=== PATIENT | male | born 1970 | race Caucasian/White ===

== ENCOUNTER → 2021-12-30 | Outpatient (CLI) | payer BC, SELFPAY ==
[2021-12-30 15:00] LABS: Absolute Lymphocyte Count 2.01 X10^3/uL (0.83-4.51); Absolute Neutrophil Count 4.2 X10^3/uL (2.0-7.7); Basophil# 0.04 X10^3/uL; Basophil% 0.6 % (0-1); Eosinophils% 2.8 % (0-5); Hematocrit 48.2 % (40-54); Lymphocyte # 2.01 X10^3/ul (0.83-4.51); Lymphocyte % 28.2 % (19-41); Mean Corp Hgb Conc 33.2 g/dL (32-36); Mean Corpuscular Hgb 31.3 pg (27.0-32.0); Mean Corpuscular Volume 94.3 fL (80-94); Monocyte# 0.59 X10^3/uL; Monocyte% 8.3 % (0-10); NRBC Flagged by Analyzer 0 % (0-5); Neutrophil # 4.23 X10^3/uL (2.7-7.7); Neutrophil % 59.4 % (47-70); Platelet Count 265 K/mm3 (150-450); RBC Distribution Width CV 12.8 % (11.6-14.6); RBC Distribution Width SD 43.8 fl (35.1-43.9); Red Blood Count 5.11 M/mm3 (4.6-6.2); White Blood Count 7.1 K/mm3 (4.4-11.0)
[2021-12-30 15:20] LABS: Hemoglobin A1c 7.9 % (3.8-5.6)
[2021-12-30 15:30] LABS: Microalbumin,Random Urine 14.1 mg/L (NO RANGE EST.); Microalbumin:Creatinine Ratio 6.7 mg/g CRE (<30 mg/g CRE)
[2021-12-30 15:39] LABS: AST(SGOT) 29 U/L (15-37); Alanine Aminotransfer ALT/SGPT 67 U/L (16-61); Albumin, Serum 4.2 g/dL (3.2-5.0); Alkaline Phosphatase 51 U/L (45-117); Anion Gap 6 (5-15); BUN 17 mg/dL (7-18); BUN/Creat Ratio 18.4 RATIO (10-20); Calcium,Total 9.5 mg/dL (8.5-10.1); Chloride 104 mmol/L (98-107); Cholesterol 183 mg/dL (200); Creatinine, Serum 0.92 mg/dL (0.70-1.30); EST Glomerular Filtration Rate 92 mL/min (>60); Est Glom Filt Rate - Afr Amer 111 mL/min (>60); Glucose 128 mg/dL (74-106); High Density Lipoprotein 45 mg/dL; Potassium 4.1 mmol/L (3.5-5.1); Protein, Total 8.2 g/dL (6.4-8.2); Sodium Level 139 mmol/L (136-145); T4 Free Direct 1.09 ng/dL (0.76-1.46); Thyroid Stim Hormone (TSH) 1.32 uIU/mL (0.358-3.74); Triglycerides 143 mg/dL; Very Low Density Lipoprotein 29 mg/dL (5-40)
[2021-12-30 15:53] LABS: Hepatitis B Surface Antibody Non-Reactive; Hepatitis B Surface Antigen Non-Reactive (Nonreactive); Hepatitis C Antibody Non-Reactive (Nonreactive)
== END | disposition home or self-care (01) ==
LOC: MFPLAB 12:06
PROVIDERS: PCP Family Medicine; Referring Provider Family Medicine; Visit Provider Family Medicine
DX: E11.9 Type 2 diabetes mellitus without complications (principal); E04.1 Nontoxic single thyroid nodule; R79.89 Other specified abnormal findings of blood chemistry
CPT/HCPCS: 36415; 80053; 80061; 82043; 82570; 83036; 84439; 84443; 85025; 86706; 86803; 87340

== ENCOUNTER → 2022-01-09 | Outpatient (CLI) | payer BC, SELFPAY ==
--- NOTE | 2022-01-09 09:24 | US_ITS ---
INDICATION: THYROID NODULE EXAMINATION: Ultrasound US Thyroid (eg thyroid, parathyroid, parotid) TECHNIQUE: Louis scale and color doppler imaging was performed of the thyroid gland. COMPARISON: None. FINDINGS: RIGHT THYROID LOBE: 5.4 x 1.8 x 1.5 cm. Homogeneous echotexture with normal vascularity. Posterior inferior thyroid or parathyroid hypoechoic nodule 1.0 x 0.75 x 0.9 cm solid nodule, wider than tall, smoothly marginated without calcifications, TI-RAD 4. LEFT THYROID LOBE: 4.5 x 1.9 x 1.2 cm. Homogeneous echotexture with normal vascularity. [ Posterior upper pole hypoechoic solid 0.6 x 0.3 x 0.5 cm nodule wider than tall, smoothly marginated, with questionable calcification, TI-RAD 4 vs 5. ISTHMUS: 0.2 cm. No thyroid nodules are present. US/Thyroid IMPRESSION: Right thyroid 1 cm nodule versus parathyroid nodule, TI-RAD 4 if of thyroid origin. Exclude serum hypercalcemic state. Nuclear medicine parathyroid scan could further evaluate if clinically indicated. Otherwise recommended one-year follow-up ultrasound per 2017 ACR white paper. Left thyroid 6 mm nodule, conservatively considered TI-RAD 5. Recommend one-year follow-up ultrasound per 2017 ACR white paper. Electronically Signed: Gregory Wright MD at 8:41 EDT ,
== END | disposition home or self-care (01) ==
LOC: US 09:22
PROVIDERS: PCP Family Medicine; Referring Provider Family Medicine; Visit Provider Family Medicine
DX: E04.1 Nontoxic single thyroid nodule (principal)
CPT/HCPCS: 76536

== ENCOUNTER 2022-02-04 12:42 | Emergency (ER) | payer BC, SELFPAY ==
[2022-02-04 12:43] VITALS: BP 138/87; PULSE 76; RESP 17; TEMP 36.6; O2SAT 96; BMI 33.8
--- NOTE | 2022-02-04 13:10 | CT_ITS ---
STUDY: CT BRAIN WITHOUT CONTRAST REASON FOR EXAM: Male, 51 years old. Vision change RADIATION DOSAGE (If Supplied By Facility): CTDIvol = ( 44.99 ) mGy, DLP = ( 829.85 ) mGycm TECHNIQUE: Transaxial CT imaging of the brain was performed without administration of intravenous contrast material. Individualized dose optimization techniques were used for this CT. COMPARISON: No relevant priors. FINDINGS: Normal soft tissue structures. Normal calvarium. Normal size ventricles and extra-axial spaces for the patient''s age. Normal white matter tracts of the cerebral hemispheres. Normal basal ganglia and thalami. Normal brainstem. Normal cerebellum. There is no intracranial hemorrhage. There are no findings of an acute ischemic infarction. Normal visualized paranasal sinuses. CT/Brain/Head without Contrast IMPRESSION: Normal unenhanced CT scan of the brain. Electronically Signed: Conner Lcokett MD at 13:41 EDT ,
--- NOTE | 2022-02-04 13:12 | EX.ED.DYSGE1 ---
HPI <BRANDON Ding - Last Filed: 02/04/22 15:05> History of Present Illness Chief Complaint: Vision Prob Narrative Narrative: 51-year-old male with history of hypertension, diabetes, hyperlipidemia, depression presents the emergency department with vision change that occurred for 10 minutes at around noon today. Patient states he was on the computer answering emails when it looked like he had spots throughout his entire vision. He states he saw it in both eyes. He describes it as looking into the sun for too long and seeing no spots. After this episode, patient did have some pain to the right head, behind the right eye. He denies any nausea or vomiting. Patient arrives here in no distress and does not have any symptoms at this time. [facility] <BRANDON Ding - Last Filed: 02/04/22 15:05> [facility] Medical History (Updated 02/04/22 @ 15:02 by BRANDON Ding) Depression Diabetes HTN (hypertension) Allergy/AdvReac Type Severity Reaction Status Date / Time No Known Allergies Allergy Verified 02/04/22 12:43 Social History Smoking Status: Former smoker ROS <BRANDON Ding - Last Filed: 02/04/22 15:05> ROS ED ROS Narrative Constitutional: Negative for fever, chills, weight loss, weakness Eyes: Negative for vision loss, double vision. Positive for vision change, spots on the vision ENT: Negative for any sore throat, ear pain, congestion Cardiovascular: Negative for any chest pain, tightness, palpitations Respiratory: Negative for any cough, sputum production, hemoptysis, dyspnea, dyspnea on exertion, orthopnea Gastrointestinal: Negative for any abdominal pain, nausea, vomiting, diarrhea, constipation, blood in stool, blood in vomit : Negative for any urinary frequency, dysuria, retention, blood in urine Muscle skeletal: Negative for any muscle joint pain, stiffness, myalgias, arthralgias, neck pain, back pain Neurological: Negative for any headache, syncope, numbness or tingling, dizziness Skin: Negative for any rashes, lumps, itching, abrasions, lacerations Psychiatric: Negative for any depression, anxiety, stress, suicidal ideation, homicidal ideation Hematologic: Negative for any easy bruising, excessive bruising, easy bleeding Allergies: Negative for any eczema, hives, rash EXAM <BRANDON Ding - Last Filed: 02/04/22 15:05> Physical Exam Narrative Exam Narrative: Vital signs reviewed. Patient alert and orient x4. Patient speaking clearly, patient is asymptomatic at this time. HEET: Head normocephalic atraumatic, TMs clear bilaterally. Posterior pharynx is clear, moist mucous membranes. Nares clear bilaterally. Pupils are equal round reactive to light. Neck: Supple with no lymphadenopathy or tenderness. No signs of meningismus, negative jolt sign. Cardiac: Regular rate and rhythm no murmurs gallops or rubs, equal peripheral pulses bilaterally. Respiratory: Lungs clear to auscultation bilaterally. No chest tenderness. Abdomen: Soft, nontender, nondistended. No abdominal bruit or pulsatile masses. No hepatosplenomegaly Extremities: No peripheral edema, no signs of gross trauma or deformity. Active full range of motion of all extremities. Neuro: Cranial nerves II through XII intact, no focal neurological deficits. NIH score of 0 Skin: Clean dry and intact with no rash, purpura, petechiae, vesicles or pustules. Backs/flank: No CVA tenderness, no midline spinal tenderness, no deformity. Psych: Normal mood and affect. No SI, HI or acute psychosis. Const Vital Signs: 02/04/22 12:43 02/04/22 15:07 Temperature 97.9 F Temperature Source Temporal Pulse Rate 76 75 Respiratory Rate 17 16 Blood Pressure 138/87 H 116/71 Blood Pressure Mean 104 86 Pulse Ox 96 97 Oxygen Delivery Method Room Air Room Air Positive well nourished and well developed General Appearance ED: well developed <Dr. Kel Cortes MD - Last Filed: 02/04/22 15:20> Physical Exam Const Vital Signs: 02/04/22 12:43 02/04/22 15:07 Temperature 97.9 F Temperature Source Temporal Pulse Rate 76 75 Respiratory Rate 17 16 Blood Pressure 138/87 H 116/71 Blood Pressure Mean 104 86 Pulse Ox 96 97 Oxygen Delivery Method Room Air Room Air MDM <BRANDON Ding - Last Filed: 02/04/22 15:05> MDM Lab Data Labs: Laboratory Results - last 24 hr 02/04/22 02/04/22 13:20 13:20 WBC 7.5 RBC 5.21 Hgb 16.5 Hct 48.1 MCV 92.3 MCH 31.7 MCHC 34.3 RDW Std Deviation 42.4 RDW Coeff of Caitie 12.4 Plt Count 248 MPV 9.2 Immature Gran % (Auto) 0.400 Neut % (Auto) 58.1 Lymph % (Auto) 29.8 [place] % (Auto) 8.9 Eos % (Auto) 2.0 Baso % (Auto) 0.8 Absolute Neuts (auto) 4.4 Absolute Lymphs (auto) 2.24 Nucleated RBC % 0 ESR 16 Sodium 138 Potassium 3.7 Chloride 102 Carbon Dioxide 30.0 Anion Gap 6 BUN 16 Creatinine 1.00 Estim Creat Clear Calc 87.39 Est GFR (MDRD) Af Amer 101 Est GFR (MDRD) Non-Af 84 BUN/Creatinine Ratio 16.0 Glucose 123 H Calcium 9.8 C-React Prot Ext Range 3.52 H Radiography Diagnostic Testing: Clinical Impression(s) from Imaging Studies Brain CT 02/04/22 13:10 IMPRESSION: Normal unenhanced CT scan of the brain. Electronically Signed: Conner Lockett MD at 13:41 EDT , Treatment and Re-Evaluation Narrative: Patient appears well, patient appears nontoxic, vital signs are stable. Patient presents the emergency department with visual changes, seeing of spots in both of his eyes. Patient's visual acuity was unremarkable, patient did receive a small TIA/CVA work-up. Patient did receive some basic laboratory values, patient CBC, chemistries were grossly unremarkable. Patient did receive a CT scan of the brain, this showed a normal unenhanced CT of the brain. Patient has been asymptomatic since 12:10 PM today. Patient's NIH stroke scale is 0. Patient is here just to make sure. On reassessment, the patient is still asymptomatic, NIH score 0, no vision changes. He will follow-up closely with his physician to continue to have this worked up. He did have a headache after this experience, a migraine headache with aura is also in the differential. Patient instructed to return for any visual changes, weakness to his upper or lower extremities. Patient stable discharge <Dr. Kel Cortes MD - Last Filed: 02/04/22 15:20> MDM MDM Narrative Medical decision making narrative: I have personally performed a face to face assessment of the patient and have reviewed the ROGE Note. I performed a substantive portion of the visit including all aspects of the following. My briggs findings include: History is markable for by ocular scintillating scotoma with unilateral headache. Patient has remote history of migraine headaches. Is not had a migraine headache in 4 years. He denied double vision, loss of vision or partial loss of vision. There is no trouble with speech or fluency. He denied problems with balance or coordination. He denied paresthesia, anesthesia or motor because of his upper or lower extremity. There is no recent history of trauma. He denies constitutional symptoms and specifically fever or chills. Exam is unremarkable. HEENT exam is unremarkable. There is no temporal artery tenderness. Extract muscle intact. Sclera is anicteric. Neck is supple. Nonfocal neurologic exam Medical Decision Making differential diagnosis is vasculitis, migraine headache, doubt stroke and reason he was sent in. CLOTH PIECER tumor Other additions or changes: Work-up is unremarkable. CT was unremarkable. Patient is discharged home with appropriate home-going instructions Lab Data Attestation: I reviewed the patient's lab results. Labs: Laboratory Results - last 24 hr 02/04/22 02/04/22 13:20 13:20 WBC 7.5 RBC 5.21 Hgb 16.5 Hct 48.1 MCV 92.3 MCH 31.7 MCHC 34.3 RDW Std Deviation 42.4 RDW Coeff of Caitie 12.4 Plt Count 248 MPV 9.2 Immature Gran % (Auto) 0.400 Neut % (Auto) 58.1 Lymph % (Auto) 29.8 [place] % (Auto) 8.9 Eos % (Auto) 2.0 Baso % (Auto) 0.8 Absolute Neuts (auto) 4.4 Absolute Lymphs (auto) 2.24 Nucleated RBC % 0 ESR 16 Sodium 138 Potassium 3.7 Chloride 102 Carbon Dioxide 30.0 Anion Gap 6 BUN 16 Creatinine 1.00 Estim Creat Clear Calc 87.39 Est GFR (MDRD) Af Amer 101 Est GFR (MDRD) Non-Af 84 BUN/Creatinine Ratio 16.0 Glucose 123 H Calcium 9.8 C-React Prot Ext Range 3.52 H Radiography Diagnostic Testing: Clinical Impression(s) from Imaging Studies Brain CT 02/04/22 13:10 IMPRESSION: Normal unenhanced CT scan of the brain. Electronically Signed: Conner Lockett MD at 13:41 EDT , Discharge Plan Triage Chief Complaint: Vision Prob ED Midlevel Provider: Jerry Bynum ED Provider: Kel Cortes Dx/Rx/DC Orders Clinical Impression: Alteration in vision, Headache Instructions: Understanding Vision Problems, ED Rebound Headache Primary Care Provider: Murray Rausch Referrals: Murray Rausch MD [Primary Care Provider] - Activity Restrictions/Additional Instructions: Please follow-up with your PCP. Disposition Disposition: Home, Self Care Discharge Date/Time: 02/04/22 15:10
[2022-02-04 13:25] LABS: Absolute Lymphocyte Count 2.24 X10^3/uL (0.83-4.51); Absolute Neutrophil Count 4.4 X10^3/uL (2.0-7.7); Basophil# 0.06 X10^3/uL; Basophil% 0.8 % (0-1); Eosinophil# 0.15 X10^3/uL; Hematocrit 48.1 % (40-54); Hemoglobin 16.5 g/dL (13.0-16.5); Lymphocyte # 2.24 X10^3/ul (0.83-4.51); Lymphocyte % 29.8 % (19-41); Mean Corp Hgb Conc 34.3 g/dL (32-36); Mean Corpuscular Hgb 31.7 pg (27.0-32.0); Mean Corpuscular Volume 92.3 fL (80-94); Mean Platelet Vol. 9.2 fl (6.2-12.0); Monocyte# 0.67 X10^3/uL; Monocyte% 8.9 % (0-10); NRBC Flagged by Analyzer 0 % (0-5); Neutrophil # 4.36 X10^3/uL (2.7-7.7); Neutrophil % 58.1 % (47-70); Platelet Count 248 K/mm3 (150-450); RBC Distribution Width CV 12.4 % (11.6-14.6); RBC Distribution Width SD 42.4 fl (35.1-43.9); Red Blood Count 5.21 M/mm3 (4.6-6.2); White Blood Count 7.5 K/mm3 (4.4-11.0)
[2022-02-04 13:38] LABS: Erythrocyte Sedimentation Rate 16 mm/hr (0-20)
[2022-02-04 13:40] LABS: Anion Gap 6 (5-15); BUN 16 mg/dL (7-18); CRP 3.52 mg/L (0.0-3.0); Calcium,Total 9.8 mg/dL (8.5-10.1); Chloride 102 mmol/L (98-107); EST Glomerular Filtration Rate 84 mL/min (>60); Est Glom Filt Rate - Afr Amer 101 mL/min (>60); Estimated Creatinine Clearance 87.39 ml/min; Glucose 123 mg/dL (74-106); Potassium 3.7 mmol/L (3.5-5.1); Sodium Level 138 mmol/L (136-145)
[2022-02-04 15:07] VITALS: BP 116/71; PULSE 75; RESP 16; O2SAT 97
== END 2022-02-04 15:10 | disposition home or self-care (01) ==
PROVIDERS: Nurse Practitioner; Emergency Provider Emergency Medicine; PCP Family Medicine; Visit Provider Emergency Medicine
DX: R51.9 Headache, unspecified (principal); E11.9 Type 2 diabetes mellitus without complications; E78.5 Hyperlipidemia, unspecified; I10 Essential (primary) hypertension; Z87.891 Personal history of nicotine dependence; F32.A Depression, unspecified; H53.9 Unspecified visual disturbance
CPT/HCPCS: 70450; 80048; 85025; 85652; 86140; 99281

== ENCOUNTER → 2022-06-17 | Outpatient (CLI) | payer BC, SELFPAY ==
[2022-06-17 17:40] LABS: Absolute Lymphocyte Count 2.23 X10^3/uL (0.83-4.51); Absolute Neutrophil Count 4.2 X10^3/uL (2.0-7.7); Basophil# 0.06 X10^3/uL; Basophil% 0.8 % (0-1); Eosinophil# 0.23 X10^3/uL; Eosinophils% 3.1 % (0-5); Hematocrit 48.8 % (40-54); Hemoglobin 16.1 g/dL (13.0-16.5); Lymphocyte # 2.23 X10^3/ul (0.83-4.51); Lymphocyte % 30.3 % (19-41); Mean Corpuscular Hgb 31.1 pg (27.0-32.0); Mean Corpuscular Volume 94.2 fL (80-94); Mean Platelet Vol. 10.1 fl (6.2-12.0); Monocyte# 0.61 X10^3/uL; Monocyte% 8.3 % (0-10); NRBC Flagged by Analyzer 0 % (0-5); Platelet Count 255 K/mm3 (150-450); RBC Distribution Width SD 44.8 fl (35.1-43.9); Red Blood Count 5.18 M/mm3 (4.6-6.2); White Blood Count 7.4 K/mm3 (4.4-11.0)
[2022-06-17 18:18] LABS: ALB/GLOB Ratio 1.2 RATIO (0.9-2.4); AST(SGOT) 33 U/L (15-37); Alanine Aminotransfer ALT/SGPT 81 U/L (16-61); Albumin, Serum 4.3 g/dL (3.2-5.0); Alkaline Phosphatase 58 U/L (45-117); Anion Gap 7 (5-15); BUN 20 mg/dL (7-18); BUN/Creat Ratio 19.6 RATIO (10-20); Calcium,Total 9.7 mg/dL (8.5-10.1); Chloride 100 mmol/L (98-107); Cholesterol 208 mg/dL (200); Creatinine, Serum 1.02 mg/dL (0.70-1.30); EST Glomerular Filtration Rate 82 mL/min (>60); Est Glom Filt Rate - Afr Amer 99 mL/min (>60); Globulin 3.7 g/dL (2.2-4.2); Glucose 207 mg/dL (74-106); High Density Lipoprotein 46 mg/dL; Potassium 4.3 mmol/L (3.5-5.1); Sodium Level 138 mmol/L (136-145); Triglycerides 402 mg/dL
[2022-06-17 18:20] LABS: Hemoglobin A1c 7.5 % (3.8-5.6)
[2022-06-17 19:04] LABS: Microalbumin:Creatinine Ratio 10.5 mg/g CRE (<30 mg/g CRE)
== END | disposition home or self-care (01) ==
LOC: MFPLAB 14:59
PROVIDERS: PCP Family Medicine; Referring Provider Family Medicine; Visit Provider Family Medicine
DX: E11.9 Type 2 diabetes mellitus without complications (principal)
CPT/HCPCS: 36415; 80053; 80061; 82043; 82570; 83036; 85025

== ENCOUNTER → 2022-10-29 | Outpatient (CLI) | payer BC, SELFPAY ==
[2022-10-29 10:17] LABS: Absolute Lymphocyte Count 2.08 X10^3/uL (0.83-4.51); Basophil# 0.07 X10^3/uL; Eosinophil# 0.24 X10^3/uL; Eosinophils% 3.4 % (0-5); Hematocrit 49.6 % (40-54); Hemoglobin 16.2 g/dL (13.0-16.5); Lymphocyte # 2.08 X10^3/ul (0.83-4.51); Lymphocyte % 29.8 % (19-41); Mean Corp Hgb Conc 32.7 g/dL (32-36); Mean Corpuscular Hgb 30.6 pg (27.0-32.0); Mean Corpuscular Volume 93.8 fL (80-94); Monocyte# 0.58 X10^3/uL; Monocyte% 8.3 % (0-10); NRBC Flagged by Analyzer 0 % (0-5); Neutrophil # 3.96 X10^3/uL (2.7-7.7); Neutrophil % 56.9 % (47-70); Platelet Count 264 K/mm3 (150-450); RBC Distribution Width CV 12.5 % (11.6-14.6); RBC Distribution Width SD 43.1 fl (35.1-43.9); Red Blood Count 5.29 M/mm3 (4.6-6.2)
[2022-10-29 10:35] LABS: AST(SGOT) 29 U/L (15-37); Alanine Aminotransfer ALT/SGPT 70 U/L (16-61); Albumin, Serum 4.1 g/dL (3.2-5.0); Alkaline Phosphatase 64 U/L (45-117); Anion Gap 5 (5-15); BUN 19 mg/dL (7-18); BUN/Creat Ratio 19.2 RATIO (10-20); Calcium,Total 9.5 mg/dL (8.5-10.1); Chloride 106 mmol/L (98-107); Cholesterol 157 mg/dL (200); Creatinine, Serum 0.99 mg/dL (0.70-1.30); EST Glomerular Filtration Rate 84 mL/min (>60); Est Glom Filt Rate - Afr Amer 102 mL/min (>60); Globulin 4.1 g/dL (2.2-4.2); Glucose 172 mg/dL (74-106); High Density Lipoprotein 41 mg/dL; Protein, Total 8.2 g/dL (6.4-8.2); Sodium Level 140 mmol/L (136-145); Triglycerides 172 mg/dL; Very Low Density Lipoprotein 34 mg/dL (5-40)
[2022-10-29 10:36] LABS: Microalbumin,Random Urine 12.5 mg/L (NO RANGE EST.); Microalbumin:Creatinine Ratio 8.7 mg/g CRE (<30 mg/g CRE)
[2022-10-29 10:49] LABS: Hemoglobin A1c 8.1 % (3.8-5.6)
== END | disposition home or self-care (01) ==
LOC: MFPLAB 08:50
PROVIDERS: PCP Family Medicine; Visit Provider Family Medicine
DX: E11.9 Type 2 diabetes mellitus without complications (principal)
CPT/HCPCS: 36415; 80053; 80061; 82043; 82570; 83036; 85025

== ENCOUNTER 2024-09-25 13:05 | Emergency (ER) | payer BC, SELFPAY ==
[2024-09-25] VITALS (9 sets, daily range): BP systolic 100–124; BP diastolic 66–84; PULSE 76–85; RESP 15–16; TEMP 35.9–36.6; O2SAT 95–100; BMI 30.8
--- NOTE | 2024-09-25 13:08 | EKG12_ITS ---
Test Reason : CP Blood Pressure : */* mmHG Vent. Rate : 92 BPM Atrial Rate : 92 BPM P-R Int : 138 ms QRS Dur : 86 ms QT Int : 352 ms P-R-T Axes : 57 3 39 degrees QTcB Int : 435 ms Normal sinus rhythm Normal ECG Confirmed by Dakotah Hobson ([id number]), material expeditor CHAPIN CISNEROS ([id number]) on 09/28/2024 6:44:26 AM Referred By: [facility]YS Confirmed By: Dakotah Hobson
--- NOTE | 2024-09-25 13:08 | RAD_ITS ---
PROCEDURE: CHEST 1 VIEW (PORTABLE) 09/25/2024 REASON FOR EXAM: CHEST PAIN TECHNIQUE: Frontal view of the chest. COMPARISON: None. FINDINGS: Heart: Unremarkable. Mediastinum: Unremarkable. Lungs/pleura: No focal consolidation. No sizeable pleural effusion or visible pneumothorax. Slightly eventrated/elevated RIGHT hemidiaphragm. Bones: Unremarkable. Lines and support devices: None. Other: None. RAD/Chest 1 View (Portable) IMPRESSION: No visible acute cardiopulmonary findings Reading Location: [id number]
--- NOTE | 2024-09-25 14:53 | EDS_ITS ---
HPI <BRANDON Ding - Last Filed: 09/25/24 19:11> History of Present Illness Chief Complaint: Chest Pain Narrative Narrative: Patient is a 54-year-old male with history of diabetes, hypertension, depression who presents to the emergency department for left-sided chest pain, left-sided arm pain. Patient states he has been having GERD like symptoms over the last couple days, however today when he woke up, the patient's pain in left chest he rated a 5 out of 10. Pay states he did radiate down his left arm. Patient states some movement can increase the pain however there is no pain on palpation. Denies any specific shortness of breath. Denies any fever or chills. Denies any cardiac history. PFSH <BRANDON Ding - Last Filed: 09/25/24 19:11> [facility] Medical History (Updated 09/25/24 @ 19:11 by BRANDON Ding) Depression HTN (hypertension) Diabetes Allergy/AdvReac Type Severity Reaction Status Date / Time No Known Allergies Allergy Verified 09/25/24 13:05 Family History no significant family his Social History Smoking Status: Light Smoker (<10/day) ROS <BRANDON Ding - Last Filed: 09/25/24 19:11> ROS ED ROS Narrative Constitutional: Negative for fever, chills, weight loss, weakness Eyes: Negative for vision loss, vision change, double vision ENT: Negative for any sore throat, ear pain, congestion Cardiovascular: Negative for any tightness, palpitations. Positive for left- sided chest pain Respiratory: Negative for any cough, sputum production, hemoptysis, dyspnea, dyspnea on exertion, orthopnea Gastrointestinal: Negative for any abdominal pain, nausea, vomiting, diarrhea, constipation, blood in stool, blood in vomit : Negative for any urinary frequency, dysuria, retention, blood in urine Muscle skeletal: Negative for any neck pain, back pain. Positive for left arm pain Neurological: Negative for any headache, syncope, dizziness Skin: Negative for any rashes, itching, abrasions, lacerations Psychiatric: Negative for any depression, anxiety, stress, suicidal ideation, homicidal ideation Hematologic: Negative for any excessive bruising, easy bleeding EXAM <BRANDON Ding - Last Filed: 09/25/24 19:11> Physical Exam Narrative Exam Narrative: Vital signs reviewed. HEET: Head normocephalic atraumatic, TMs clear bilaterally. Posterior pharynx is clear, moist mucous membranes. Nares clear bilaterally. Neck: Supple with no lymphadenopathy or tenderness. No signs of meningismus. Cardiac: Regular rate and rhythm no murmurs gallops or rubs, equal peripheral pulses bilaterally. Respiratory: Lungs clear to auscultation bilaterally. No chest tenderness. Abdomen: Soft, nontender, nondistended. No abdominal bruit or pulsatile masses. No hepatosplenomegaly Extremities: No peripheral edema, no signs of gross trauma or deformity. Active full range of motion of all extremities. Neuro: Cranial nerves II through XII intact, no focal neurological deficits. Skin: Clean dry and intact with no rash, purpura, petechiae, vesicles or pustules. Backs/flank: No CVA tenderness, no midline spinal tenderness, no deformity. Psych: Normal mood and affect. No SI, HI or acute psychosis. Const Vital Signs: 09/25/24 13:05 09/25/24 14:05 09/25/24 15:00 Temperature 96.6 F L Temperature Source Temporal Pulse Rate 78 81 Respiratory Rate 15 Respiratory Effort Blood Pressure 113/84 H 112/78 124/79 H Blood Pressure Mean 93 89 94 Pulse Ox 98 97 95 Oxygen Delivery Method Room Air Room Air 09/25/24 15:04 09/25/24 15:06 09/25/24 15:07 Temperature Temperature Source Pulse Rate 83 Respiratory Rate Respiratory Effort Normal Non-Labored Blood Pressure 124/79 H Blood Pressure Mean Pulse Ox Oxygen Delivery Method Room Air 09/25/24 15:09 09/25/24 16:00 09/25/24 17:00 Temperature Temperature Source Pulse Rate 85 81 77 Respiratory Rate 16 16 Respiratory Effort Blood Pressure 115/70 100/66 105/71 Blood Pressure Mean 77 82 Pulse Ox 96 97 Oxygen Delivery Method Room Air Room Air 09/25/24 18:00 09/25/24 18:04 Temperature 97.9 F Temperature Source Pulse Rate 76 79 Respiratory Rate 16 16 Respiratory Effort Blood Pressure 121/79 H 121/79 H Blood Pressure Mean 93 93 Pulse Ox 96 100 Oxygen Delivery Method Room Air Positive well nourished and well developed General Appearance ED: well developed <Dr. Anish Bales, DO - Last Filed: 09/25/24 23:09> Physical Exam Const Vital Signs: 09/25/24 13:05 09/25/24 14:05 09/25/24 15:00 Temperature 96.6 F L Temperature Source Temporal Pulse Rate 78 81 Respiratory Rate 15 Respiratory Effort Blood Pressure 113/84 H 112/78 124/79 H Blood Pressure Mean 93 89 94 Pulse Ox 98 97 95 Oxygen Delivery Method Room Air Room Air 09/25/24 15:04 09/25/24 15:06 09/25/24 15:07 Temperature Temperature Source Pulse Rate 83 Respiratory Rate Respiratory Effort Normal Non-Labored Blood Pressure 124/79 H Blood Pressure Mean Pulse Ox Oxygen Delivery Method Room Air 09/25/24 15:09 09/25/24 16:00 09/25/24 17:00 Temperature Temperature Source Pulse Rate 85 81 77 Respiratory Rate 16 16 Respiratory Effort Blood Pressure 115/70 100/66 105/71 Blood Pressure Mean 77 82 Pulse Ox 96 97 Oxygen Delivery Method Room Air Room Air 09/25/24 18:00 09/25/24 18:04 Temperature 97.9 F Temperature Source Pulse Rate 76 79 Respiratory Rate 16 16 Respiratory Effort Blood Pressure 121/79 H 121/79 H Blood Pressure Mean 93 93 Pulse Ox 96 100 Oxygen Delivery Method Room Air MDM <BRANDON Ding - Last Filed: 09/25/24 19:11> MDM Lab Data Labs: Laboratory Results - last 24 hr 09/25/24 09/25/24 14:48 16:56 WBC 11.3 H RBC 4.99 Hgb 15.8 Hct 45.8 MCV 91.8 MCH 31.7 MCHC 34.5 RDW Std Deviation 41.8 RDW Coeff of Caitie 12.4 Plt Count 286 MPV 9.5 Immature Gran % (Auto) 0.400 Neut % (Auto) 64.0 Lymph % (Auto) 25.9 [place] % (Auto) 6.7 Eos % (Auto) 2.1 Baso % (Auto) 0.9 Absolute Neuts (auto) 7.2 Absolute Lymphs (auto) 2.92 Nucleated RBC % 0 Sodium 136 Potassium 3.8 Chloride 99 Carbon Dioxide 23.0 Anion Gap 14 BUN 17 Creatinine 0.82 Estim Creat Clear Calc 117.03 Est GFR (MDRD) Non-Af 104 BUN/Creatinine Ratio 20.1 H Glucose 200 H Calcium 9.9 Total Bilirubin 0.24 Direct Bilirubin 0.12 AST 19 ALT 20 Alkaline Phosphatase 59 Troponin T High Sens < 6 Troponin T Hi Sens 2 Hr < 6 Total Protein 7.4 Albumin 4.5 Globulin 2.9 Lipase 52 Radiography Diagnostic Testing: Clinical Impression(s) from Imaging Studies Chest X-Ray 09/25/24 13:08 IMPRESSION: No visible acute cardiopulmonary findings Reading Location: [facility] EKG EKG shows normal sinus rhythm: Attestation: I personally reviewed and interpreted this EKG as follows: Interpretation: Sinus Rhythm Comments: EKG shows normal sinus rhythm, rate of 92 bpm, MI interval 138 ms, QRS duration 86 ms, no acute ST elevation, no acute infarct noted. Treatment and Re-Evaluation :: Differential diagnosis includes however is not limited to: ACS, FL, PE, muscle strain, chest wall contusion, GERD, pancreatitis, pneumonia Patient appears generally well, vital signs are stable, patient is nontoxic- appearing. Presenting to the emerged part with left-sided chest pain, going down the left arm for the last 4 hours. Patient will receive a cardiac workup including troponins x 2. Patient pain at this time is a 5 out of 10. Patient will receive nitro series as well as 324 mg aspirin. Patient will need to be reevaluated. Chest x-ray will be ordered, all radiologic examinations were read, reviewed by the emergency department attending. From these reads, a plan of care will be put in place. Patient checks x-ray showed no visible acute cardiopulmonary findings. Patient CBC shows slight leukocytosis with a white blood count 11.3, patient's physical biochemist vasiliy were unremarkable. This troponin was less than 6. Repeat troponin was ordered. Patient had minimal relief with nitro, when he moved, the pain came back. Patient was treated with IV Toradol. Patient reevaluation was in no distress. Patient's second troponin was less than 6, this time, there is no evidence of suspect any ACS or FL. At this time, patient be discharged home. Instructed to follow-up outpatient with her PCP. Patient agreeable with this plan, instructed return for any worsening symptoms. When I went to speak with the patient, he was not happy. I asked why he was unhappy, he states that we did not do anything for his pain. At this time, I did explain to him that we did perform nitro, as well as Toradol this only helped slightly. Patient was then given a GI cocktail. He states it only helped for 3 to 4 minutes then he continued to have the burning sensation. At this time, I have no evidence suspect any ACS or FL, severe gastritis. Patient will follow-up outpatient. I did offer the patient some omeprazole 40 mg daily, he states he will just take [id number] and follow-up with his PCP <Dr. Anish Bales, DO - Last Filed: 09/25/24 23:09> [facility] Narrative Medical decision making narrative: I have personally performed a face to face assessment of the patient and have reviewed the ROGE Note. I performed a substantive portion of the visit including all aspects of the following. My briggs findings include: History: Patient presents with chest pain that began today. Patient states it is gradually gotten worse throughout the day today. Patient states the pain is over the left side of his chest. Patient states he has been taking an acids for possible reflux symptoms which have not been helping. Patient describes the pain as burning and stabbing. Patient states the pain is over the left chest and radiates down his left arm at times. Patient states his pain is worse with movement elevated and bending forward. Patient states nothing seems to help with it. Patient denies any nausea or vomiting. Patient denies any shortness of breath or diaphoresis. Patient denies any cough or fever. Exam: Vital signs are stable. Patient is afebrile. Patient is in no acute distress. Oral mucosa is pink and moist. Neck is supple. Trachea is midline. There is no JVD. Heart was regular rate and rhythm. Lungs are clear and equal bilateral. Abdomen is soft. Bowel sounds are normal. There is no tenderness. Medical Decision Making: Differential diagnosis includes cardiac dysrhythmia, cardiac ischemia, pneumonia, bronchitis, gastroesophageal reflux disease, anxiety, and musculoskeletal pain. EKG will be obtained to assess for cardiac dysrhythmia and cardiac ischemia. Chest x-ray will be obtained to assess for pneumonia and pneumothorax. CBC will be obtained to assess for leukocytosis and anemia. Basic metabolic profile will be obtained to assess for electrolyte abnormality and renal function. High-sensitivity troponin will be obtained to assess for cardiac ischemia. 2-hour repeat high-sensitivity troponin will be obtained to assess for ongoing cardiac ischemia. Lipase will be obtained to assess for pancreatitis. Liver profile will be obtained to assess for hepatic function. Patient was given aspirin and nitroglycerin here. EKG was obtained. On my independent interpretation, it showed a normal sinus rhythm with a rate of 92. MI interval, QRS interval, and QTc intervals were all normal. Newton was normal. There are no acute ST or T wave changes. Portable 1 view chest x-ray was obtained. On my independent interpretation, lung perez are clear. There is normal cardiac silhouette. Bony thorax is normal. There is no acute process noted. Radiologist also interpreted the x-ray and agrees. CBC was reviewed. There is a slight leukocytosis of 11.3. The remainder is within normal limits. Basic metabolic profile was reviewed and showed an elevated glucose of 200. The remainder is within normal limits. Hepatic profile was reviewed and was within normal limits. Initial high-sensitivity troponin was reviewed and was less than 6. Lipase was reviewed and was normal at 52. 2-hour repeat high-sensitivity troponin was reviewed and was less than 6. Patient was advised of his findings. Patient was advised this could be musculoskeletal pain. Patient was given GI cocktail. Patient was given injection of Toradol. Patient was advised to follow-up with his primary care physician in 5 to 7 days. Patient was instructed return if worse in any way. Patient understood and was agreeable with the plan. All questions were answered. Lab Data Labs: Laboratory Results - last 24 hr 09/25/24 09/25/24 14:48 16:56 WBC 11.3 H RBC 4.99 Hgb 15.8 Hct 45.8 MCV 91.8 MCH 31.7 MCHC 34.5 RDW Std Deviation 41.8 RDW Coeff of Caitie 12.4 Plt Count 286 MPV 9.5 Immature Gran % (Auto) 0.400 Neut % (Auto) 64.0 Lymph % (Auto) 25.9 [place] % (Auto) 6.7 Eos % (Auto) 2.1 Baso % (Auto) 0.9 Absolute Neuts (auto) 7.2 Absolute Lymphs (auto) 2.92 Nucleated RBC % 0 Sodium 136 Potassium 3.8 Chloride 99 Carbon Dioxide 23.0 Anion Gap 14 BUN 17 Creatinine 0.82 Estim Creat Clear Calc 117.03 Est GFR (MDRD) Non-Af 104 BUN/Creatinine Ratio 20.1 H Glucose 200 H Calcium 9.9 Total Bilirubin 0.24 Direct Bilirubin 0.12 AST 19 ALT 20 Alkaline Phosphatase 59 Troponin T High Sens < 6 Troponin T Hi Sens 2 Hr < 6 Total Protein 7.4 Albumin 4.5 Globulin 2.9 Lipase 52 Radiography Diagnostic Testing: Clinical Impression(s) from Imaging Studies Chest X-Ray 09/25/24 13:08 IMPRESSION: No visible acute cardiopulmonary findings Reading Location: [facility] Discharge Plan Triage Chief Complaint: Chest Pain ED Midlevel Provider: Jerry Bynum ED Provider: Anish Baels Dx/Rx/DC Orders Clinical Impression: Chest pain, GERD (gastroesophageal reflux disease) Instructions: ED Chest Pain, Noncardiac, ED Chest Wall Strain Primary Care Provider: Sarika Murray Referrals: Sarika Murray MD [Primary Care Provider] - Activity Restrictions/Additional Instructions: You had a negative cardiac workup today. You need to follow-up outpatient. Return for any worsening symptoms peer Print Language: Amharic Disposition Disposition: Home, Self Care Discharge Date/Time: 09/25/24 19:15
[2024-09-25 15:03] LABS: Absolute Lymphocyte Count 2.92 X10^3/uL (0.83-4.51); Absolute Neutrophil Count 7.2 X10^3/uL (2.0-7.7); Basophil% 0.9 % (0-1); Eosinophil# 0.24 X10^3/uL; Eosinophils% 2.1 % (0-5); Hematocrit 45.8 % (40-54); Hemoglobin 15.8 g/dL (13.0-16.5); Lymphocyte # 2.92 X10^3/ul (0.83-4.51); Lymphocyte % 25.9 % (19-41); Mean Corp Hgb Conc 34.5 g/dL (32-36); Mean Corpuscular Hgb 31.7 pg (27.0-32.0); Mean Corpuscular Volume 91.8 fL (80-94); Mean Platelet Vol. 9.5 fl (6.2-12.0); Monocyte# 0.75 X10^3/uL; Monocyte% 6.7 % (0-10); NRBC Flagged by Analyzer 0 % (0-5); Neutrophil # 7.22 X10^3/uL (2.7-7.7); Platelet Count 286 K/mm3 (150-450); RBC Distribution Width CV 12.4 % (11.6-14.6); RBC Distribution Width SD 41.8 fl (35.1-43.9); Red Blood Count 4.99 M/mm3 (4.6-6.2); White Blood Count 11.3 K/mm3 (4.4-11.0)
[2024-09-25] MEDS: Aspirin 81 MG TAB.CHEW 324 MG PO (15:03)
[2024-09-25] MEDS: Nitroglycerin SL (ED/IMG/CATH) 0.4 MG TABLET SL ×2 (15:04→15:09)
[2024-09-25 15:26] LABS: AST(SGOT) 19 U/L (<=37); Alanine Aminotransfer ALT/SGPT 20 U/L (<=46); Albumin, Serum 4.5 g/dL (3.5-5.0); Alkaline Phosphatase 59 U/L (40-129); Anion Gap 14 (5-15); BUN 17 mg/dL (4-19); BUN/Creat Ratio 20.1 RATIO (10-20); Bilirubin, Direct 0.12 mg/dL (0.00-0.30); Calcium,Total 9.9 mg/dL (7.6-11.0); Chloride 99 mmol/L (98-108); Creatinine, Serum 0.82 mg/dL (0.70-1.20); EST Glomerular Filtration Rate 104 (>60); Estimated Creatinine Clearance 117.03 ml/min (50-250); Globulin 2.9 g/dL (2.2-4.2); Glucose 200 mg/dL (70-99); Lipase 52 U/L (13-75); Potassium 3.8 mmol/L (3.3-5.1); Protein, Total 7.4 g/dL (5.9-8.4); Sodium Level 136 mmol/L (133-145); Total Bilirubin 0.24 mg/dL (0.00-1.30); Troponin T High Sensitivity < 6 ng/L (<=22)
[2024-09-25] MEDS: Ketorolac 15 MG/ML Vial IV (16:58)
[2024-09-25 17:35] LABS: Troponin T High Sens 2 HR < 6 ng/L (<=22)
[2024-09-25] MEDS: Mag Hydrox/Al Hydrox/Simeth 30 ML UDC PO (18:29)
[2024-09-25] MEDS: Lidocaine 2% Viscous15 ML UDC 15 ML PO (18:29)
== END 2024-09-25 19:15 | disposition home or self-care (01) ==
PROVIDERS: Emergency Provider Emergency Medicine; PCP Family Medicine; Visit Provider Emergency Medicine
DX: R07.9 Chest pain, unspecified (principal); E11.9 Type 2 diabetes mellitus without complications; K21.9 Gastro-esophageal reflux disease without esophagitis; I10 Essential (primary) hypertension; F17.200 Nicotine dependence, unspecified, uncomplicated
CPT/HCPCS: 71045; 80048; 80076; 83690; 84484; 85025; 93005; 96374; 99283; A4216

== ENCOUNTER → 2024-09-28 | Outpatient (CLI) | payer BC, SELFPAY ==
--- NOTE | 2024-09-28 12:45 | RAD_ITS ---
PROCEDURE: CERV SPINE 2 OR 3 VIEWS 09/28/2024 REASON FOR EXAM: NECK PAIN WITH NEUROPATHY TECHNIQUE: 2 views of the cervical spine. AP and lateral COMPARISON: None available FINDINGS: The cervical spine is visualized on the lateral view from the skull base to the bottom of C7. The C7-T1 disc spaces not well seen. Straightening may represent positioning or spasm. No prevertebral soft tissue swelling. No fracture or malalignment. C4-5 mild disc space narrowing with anterior corner osteophyte formation. Mild disc space narrowing C6-7. The visualized apices appear clear. RAD/Cerv Spine 2 or 3 Views IMPRESSION: Mild cervical spondylosis/discogenic change as above. Straightening may represent positioning or spasm. Reading Location: [id number]
== END | disposition home or self-care (01) ==
LOC: MTRAD 12:45
PROVIDERS: PCP Family Medicine; Referring Provider Family Medicine; Visit Provider Family Medicine
DX: R07.9 Chest pain, unspecified (principal); G54.2 Cervical root disorders, not elsewhere classified
CPT/HCPCS: 72040

== ENCOUNTER → 2024-10-04 | Outpatient (CLI) | payer BC, SELFPAY ==
[2024-10-04 10:44] LABS: CORTISOL AM 9.63 ug/dL (6.02-18.40)
== END | disposition home or self-care (01) ==
LOC: MFPLAB 08:56
PROVIDERS: PCP Family Medicine; Referring Provider Family Medicine; Visit Provider Family Medicine
DX: R68.82 Decreased libido (principal); R53.83 Other fatigue
CPT/HCPCS: 36415; 82533; 84402; 84403; 84443

== ENCOUNTER → 2024-10-08 | Outpatient (CLI) | payer BC, SELFPAY ==
--- NOTE | 2024-10-10 14:04 | STRESSREP ---
Stress Test Report Date: 09/30/2024 Procedure: Exercise tolerance test Indications: Chest pain Consent: Per the patient Procedure: The patient exercised on a Alex protocol for 6 minutes and 57 seconds achieving a peak heart rate of 155 bpm (93% predicted maximal heart rate) with a peak blood pressure 142/70 mmHg and a peak MET capacity of approximately 9.9 MET's. The baseline ECG demonstrated normal sinus rhythm. The peak exercise ECG demonstrated sinus tachycardia with no significant ischemic changes. [There were no cardiac dysrhythmias pretest, during exercise, or recovery]. The functional capacity was considered normal for age. The patient had no complaint of chest discomfort during exercise or recovery. The examination was discontinued secondary to achieving target heart rate. Impression: 1. Technically adequate (percent predicted maximal heart rate greater than 85%) exercise tolerance test 2. Stress test is negative for exercise-induced chest pain. 3. Stress test test is negative for exercise-induced EKG changes of ischemia. 4. Functional capacity is normal for age This note was generated with [employer] software. It may contain incorrect words, spelling, and punctuation that were not noted in checking the note before signing.
== END | disposition home or self-care (01) ==
LOC: CVS 10:22
PROVIDERS: PCP Family Medicine
DX: I10 Essential (primary) hypertension (principal); E11.59 Type 2 diabetes mellitus with other circulatory complications
CPT/HCPCS: 93017

== ENCOUNTER → 2024-11-22 | Outpatient (CLI) | payer BC, SELFPAY ==
--- NOTE | 2024-11-22 15:38 | MRI_ITS ---
PROCEDURE: SPINE CERVICAL (ROUTINE) 11/22/2024 REASON FOR EXAM: PAIN, MYELOPATHY, RADICULOPATHY TECHNIQUE: Multiplanar and multisequence images were obtained without IV contrast administration. COMPARISON: Radiographs on 10/26/2024. FINDINGS: Multilevel disc dehydration. Multilevel disc space narrowing. Diffuse spondylotic changes. Multilevel facet joint arthropathy and degenerative uncovertebral joint disease. There is normal signal intensity from the visualized bone marrow without evidence of replacement or acute fracture. The visualized portions of the spinal cord are unremarkable. The visualized portions of the posterior fossa are unremarkable. There is straightening of the cervical lordosis, probably muscular spasm and pain. The vertebral alignment is within normal limits. Evaluation of the individual levels revealed the following: C2-C3: There is minimal diffuse disc bulge. The spinal canal is not narrowed. There is no evidence of neural foramina narrowing. C3-C4: There is mild diffuse disc bulge. The spinal canal is not narrowed. There is mild bilateral neural foramina narrowing. C4-C5: There is mild diffuse disc bulge. The spinal canal is not narrowed. There is mild bilateral neural foramina narrowing. C5-C6: There is mild diffuse disc bulge. The spinal canal is not narrowed. There is no evidence of neural foramina narrowing. C6-C7: There is mild diffuse disc bulge. Superimposed central disc extrusion measuring 8.3 x 5.9 mm in its largest craniocaudal and anteroposterior dimensions respectively. Mild cranial subligamentous slippage of the herniated disc without sequestration. The spinal canal is moderately narrowed. There is mild bilateral neural foramina narrowing. MRI/Spine Cervical (Routine) IMPRESSION: Spondylosis. Degenerative disc disease. Reading [facility] [id number]
== END | disposition home or self-care (01) ==
PROVIDERS: PCP Family Medicine; Referring Provider Student in an Organized Health Care Education/Training Program; Visit Provider Student in an Organized Health Care Education/Training Program
DX: M54.12 Radiculopathy, cervical region (principal); G95.9 Disease of spinal cord, unspecified
CPT/HCPCS: 72141

== ENCOUNTER 2024-12-06 10:30 | Outpatient (RCR) | payer BC, SELFPAY ==
--- NOTE | 2024-10-25 13:16 | HP.PTEVAL ---
Patient's Visit Information Visit Information Visit Information: LESLIE VASQUEZ is a 54 year old M referred to Physical Therapy by Horace Joseph with a diagnosis of crvical neuropathy. Date of Evaluation: 10/25/24 Physical Therapist: Anish Davenpotr, ANA PAULAT, OCS, CSCS Visit Plan Frequency: 2x /Week Duration: 4-6 Weeks Plan: 2-3x/week for 3-6 weeks... IE HP cervical retraction and ext to end range 10x every two hours and postural focus. Monitor tricep strength L, deviation with extension and ROM ext. In clinic please progress ret/ext forces emphasizing lower cervical spine , PA mobs cervical and thoracic, postural correction and postural cervical strength. Progress HEP Neck ROM, will need pec and UT stretches and isometric cervical retraction supine. Subjective Subjective: Having back neck adn arm pain. Maybe slippage in disc. Neck pain and stiffness and L scapula and into L upper arm to elbow. Started a month ago. Woke up a month ago for no reason. Heating pad helps. Constant most of time. Taking nerve tylenol which helps. No numbness or tingling in L arm. Can't point to anything that he does to make it wors. Employed sitting at computer. Pain increases if he sits too long. 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 Hobbies include throwing pottery but has not tried lately b/c of this. No regular exercises. basic ADLS, all I. Pain L arm and neck: Pain Intensity (Out of 10): 8 Pain Intensity Range: 2 and 5 Comment: nerve pill gets it down to 2/10 Objective Objective: 35# tricep R and 14# L repeated motion 1/10 off L neck 1/10 in L lateral arm. Protrusion: W neck, 3/10 arm . retraction repeated: PDM, ret ext PDM and deviates R but improved as he goes. reflexes 2/3 bi and tri B Sensation UE WNL to gross light touch B. strength is 4/5 UE and tricep weak on L as above. Posture is forward head and protracted scap, loss of cervical lordosis scapula and UE AROM WFL and without increased pain. cervical aROM 60 ext with pain, deviates R slightly. retraction sharp pain centrally. rotations symmetircal and without pain. SB symmetrical adn without pain. Balance/Special Test Scores Oswestry Neck Score: 16 Goals Goal 1:: full cervical retraction ext without deviation or pain Goal Time Frame: 4-6 Weeks Goal 2:: Pain in arm and neck 90% better at 1/10 at worst and manageable. Goal Time Frame: 4-6 Weeks Goal 3:: L triceps strength 28# + Goal Time Frame: 4-6 Weeks Goal 4:: sit at computer and wake up in am without pain or stiffness in neck Goal Time Frame: 4-6 Weeks Goal 5:: oswestry score 6 or less. Goal Time Frame: 4-6 Weeks Rehabilitation Potential Physical Therapy Diagnosis: cervical derangement likely limiting mobility adn causing painful activities. Rehabilitation Potential: Good Anticipated Interventions Patient/Client Instruction: Educate patient on: Condition and Plan of Care For the Purpose of:: To decrease pain, To increase ROM, To improve nutrient delivery to tissue, To improve muscle performance and motor function, To increase tolerance to activity/condition/position and To improve ability of physical actions for home/community/work/leisure Therapeutic Exercise to Include: Strength training, Postural training, Flexibilty training, Passive ROM, Active ROM and Scapular Strength/Stabilization For the Purpose of:: To decrease pain, To increase ROM, To improve nutrient delivery to tissue, To improve muscle performance and motor function, To increase tolerance to activity/condition/position and To improve ability of physical actions for home/community/work/leisure Manual Therapy Techniques to Include: Mobilization, Passive ROM and Soft tissue mobilization For the Purpose of:: To decrease pain, To increase ROM, To improve nutrient delivery to tissue and To improve muscle performance and motor function Text: Thank you for the opportunity to evaluate your patient. For Medicare and Medicare HMO plans, please review the plan of care and approve it. It will need to be FAXED BACK to us at [phone] for Medicare purposes. For Medicare only, by signing this I certify the plan of care. Please let me know if there are questions or concerns regarding this plan of care. Physician Signature: Date:
--- NOTE | 2024-12-06 10:53 | HP.PTDCSUM ---
Discharge Summary D/C summary: It has been my pleasure to treat LESLIE VASQUEZ referred by Sarika Murray MD, with the diagnosis of cervical neuropathy for a total of 10 visit(s). Discharge Date: 12/06/24 Please see the following information for a summary of their discharge status. Subjective Subjective: Better overall. Less pain, much less intense, it happens in neck 1/10 now and then, arm occasionally 2/10. Walking is better than sitting. Sleep is OK. Activcities: avoids a little lifting but going the right way. HEP: going well. Pain L arm and neck: Pain Intensity (Out of 10): 1 Overall Improvement % Improvement: 95 Objective Objective/Function: 17# L tricep. Sitting up tall with good posture. Full cervical ext and rotation ROM and improving retraction. Goals Goal 1:: full cervical retraction ext without deviation or pain Goal Progress: Goal Met Goal 2:: Pain in arm and neck 90% better at 1/10 at worst and manageable. Goal Progress: 95% Goal 3:: L triceps strength 28# + Goal Progress: 17# Goal 4:: sit at computer and wake up in am without pain or stiffness in neck Goal Progress: Goal Met Goal 5:: oswestry score 6 or less. Goal Progress: Goal Met Plan Plan: d/c to HEP, pt to schedule with doctor for RI results but fels 95% better, still weak in triceps. D/C Information Discharge Comments: see POC above. d/c sentence: If there are questions or concerns regarding this patient's physical therapy, please feel free to call me at [phone]. Thank you for the referral of this patient. Sincerely, Anish Davenport, DPT, OCS, CSCS Balance/Gait/Functional tests Balance/Special Test Scores Oswestry Neck Score: 6 Improvement % Improvement: 95
== END 2024-12-06 19:00 | disposition home or self-care (01) ==
LOC: PT 10:30
PROVIDERS: PCP Family Medicine; Referring Provider Family Medicine; Visit Provider Family Medicine
DX: G62.9 Polyneuropathy, unspecified (principal)
CPT/HCPCS: 97110; 97140; 97161; 97530

== ENCOUNTER → 2025-02-20 | Outpatient (CLI) | payer BC, SELFPAY ==
[2025-02-20 13:05] LABS: PSA,Total - Annual Screen 0.57 ng/mL (0.02-4.00)
== END | disposition home or self-care (01) ==
LOC: MFPLAB 10:01
PROVIDERS: PCP Family Medicine
DX: Z13.1 Encounter for screening for diabetes mellitus (principal); Z12.5 Encounter for screening for malignant neoplasm of prostate
CPT/HCPCS: 36415; 83036; 84153; G0103